=== PATIENT | male | born 1955 | race African-American/Black ===

== ENCOUNTER → 2016-06-07 | Day surgery (SDC) | payer MEDICAID ==
[~2016-06-07] VITALS: Ht 180.3 cm; Wt 125.2 kg
[2016-06-07] VITALS (8 sets, daily range): BP systolic 127–135; BP diastolic 70–88
[~2016-06-07] MED LIST: LISINOPRIL5 MG ORAL; NS Irrig 1000ml ONE; PROCARDIA10 MG ORAL; Propofol 10mg/ml 20ml IV ONE; VITAMIN C500 M1 ORAL
--- NOTE | 2016-06-07 11:11 | Short Stay Surgery H&P ---
History of Present Illness History of Present Illness Chief Complaint see recent H&P HPI Jacobo Kelly is a 60 year old male who was admitted on for Gastric And Colon Cancer Patient History Allergies: Coded Allergies: NO KNOWN ALLERGIES (Verified Allergy, Unknown, 06/07/16) PAST MEDICAL HISTORY: Past Surgeries: Social History: Medication History Scheduled Ascorbic Acid* (Vitamin C*), 1,000 MG ORAL DAILY, (Reported) Lisinopril (Lisinopril*), 10 MG ORAL DAILY, (Reported) Nifedipine* (Procardia*), 90 MG ORAL DAILY, (Reported) Physical Exam Vital Signs Last Vital Signs Date Time Temp Pulse Resp B/P Pulse Ox O2 Delivery O2 Flow Rate FiO2 06/07/16 10:22 98.1 102 16 128/70 97 Room Air Plan Attestation Are the patient's medical conditions optimized for surgery? HAL GRANADOS Jun 07, 2016 11:11
--- NOTE | 2016-06-07 11:11 | Pre-Procedure Note/Attestation ---
Pre-Procedure Note/Attestation Complete Prior to Procedure Planned Procedure: not applicable Procedure Narrative: egd/colonoscopy Indications for Procedure Pre-Operative Diagnosis: h/o gastric and colon cancer Attestation I attest that I discussed the nature of the procedure; its benefits; risks and complications; and alternatives (and the risks and benefits of such alternatives ), prior to the procedure, with the patient (or the patient's legal sales training representative). I attest that, if there was a reasonable possibility of needing a blood transfusion, the patient (or the patient's legal sales training representative) was given the [facility] standardized written summary, pursuant to the [place] Blood Safety Act ([place] Health and Safety Code # 1645, as amended). I attest that I re-evaluated the patient just prior to the surgery and that there has been no change in the patient's H&P, except as documented below: HAL GRANADOS Jun 07, 2016 11:11
--- NOTE | 2016-06-07 12:05 | Endoscopy Procedure Note ---
Endoscopy Procedure Note Indication for Procedure: h/o colon cancer and gastric cancer Procedures Performed: EGD, colonoscopy Operative Findings/Diagnosis: gastritis, diverticulosis Specimen: yes Pt Tolerated Procedure Well: Yes Estimated Blood Loss: none Anesthesiologist: remi Anesthesia: MAC Implant(s) used?: No 50 yrs or older w/o bx or poly: Yes 10yrs. F/U not recommended: Yes If not recommended, why?: Above average risk 10 yrs. F/U needed: Yes 18 years or older w/prev. colo: Yes <3yrs. since last colonoscopy: No HAL GRANADOS Jun 07, 2016 12:05
--- NOTE | 2016-06-07 12:15 | Anethesia Preoperative Eval ---
Anesthesia Pre-op PMH/ROS General Date of Evaluation: Jun 07, 2016 Time of Evaluation: 12:03 Anesthesiologist: remi ASA Score: ASA 3 Mallampati Score Class I : Soft palate, uvula, fauces, pillars visible Class II: Soft palate, uvula, fauces visible Class III: Soft palate, base of uvula visible Class IV: Only hard plate visible Mallampati Classification: Class II Surgeon: karlene Diagnosis: s/p gastric & colon Ca Surgical Procedure: egd/colonoscopy Anesthesia History: none Social History: current smoker Allergies: Coded Allergies: NO KNOWN ALLERGIES (Verified Allergy, Unknown, 06/07/16) Past Medical History Cardiovascular: Reports: HTN Pulmonary: Reports: COPD Gastrointestinal/Genitourinary: Reports: other - gastric & colon Ca Other: obesity Anesthesia Pre-op Phys. Exam Physician Exam Last Vital Signs Date Time Temp Pulse Resp B/P Pulse Ox O2 Delivery O2 Flow Rate FiO2 06/07/16 10:22 98.1 102 16 128/70 97 Room Air Airway Exam Mallampati Score: Class II Teeth: missing Anesthesia Pre-op A/P Risk Assessment & Plan Plan: propofol Status Change Before Surgery: Vince Lynch MD Jun 07, 2016 12:15
--- NOTE | 2016-06-07 12:15 | Immediate Post-Op Evaluation ---
Immediate Post-Op Evalulation Immediate Post-Op Evalulation Date of Evaluation: Jun 07, 2016 Time of Evaluation: 12:50 IV Fluids: 500 Blood Pressure Systolic: 125 Blood Pressure Diastolic: 80 Pulse Rate: 91 Respiratory Rate: 24 O2 Sat by Pulse Oximetry: 99 Temperature (Fahrenheit): 98.4 Pain Score (1-10): 0 Nausea: No Vomiting: No Complications none Patient Status: awake, patent, none Hydration Status: adequate Vince Patterson MD Jun 07, 2016 12:15
--- NOTE | 2016-06-07 12:16 | 48 Hour Post Anesthesia Eval ---
Post Anesthesia Evaluation Date of Evaluation: Jun 07, 2016 Time of Evaluation: 13:45 Blood Pressure Systolic: 129 0: 84 Pulse Rate: 87 Respiratory Rate: 18 Temperature (Fahrenheit): 97.2 O2 Sat by Pulse Oximetry: 95 Airway: patent Nausea: No Vomiting: No Pain Intensity: 0 Hydration Status: adequate Cardiopulmonary Status: stable Mental Status/LOC: patient returned to baseline Follow-up Care/Observations: n/a Post-Anesthesia Complications: tolerated well Follow-up care needed: ready to discharge Vince Patterson MD Jun 07, 2016 12:16
--- NOTE | 2016-06-07 19:27 | Procedure Note ---
DATE OF PROCEDURE: 06/07/2016 SURGEON: Emanuel Mijares M.D. PROCEDURE: Upper endoscopy and colonoscopy with biopsy. ANESTHESIA: Vince Patterson M.D. INSTRUMENT: Olympus adult flexible endoscope and colonoscope. INDICATION: History of colon cancer, chronic GERD, and questionable history of gastric cancer. REASON FOR PROCEDURE: The procedure, risks, benefits, and possible consequences, including hemorrhage, aspiration, perforation and infection, and alternative treatments, were explained to the patient/legal guardian by Dr. Emanuel Mijares and the patient/legal guardian understood and accepted these risks. DESCRIPTION OF PROCEDURE: After informed consent was obtained, the patient was adequately sedated, Olympus upper endoscope was advanced from mouth into the second portion of the duodenum and retroflexion was performed in the stomach. The patient has nodule right at the cardia of the stomach, which was biopsied. 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 Random biopsy from antrum was obtained to rule out H. pylori infection. The rest of the upper endoscopy examination was within normal limits. At this time, the upper endoscope was retrieved and the patient was turned over for colonoscopy. First, a rectal exam was performed, which was normal. Then, the scope was advanced into the anastomosis. The patient had evidence of right hemicolectomy. There is no obvious polyp seen in this colonoscopy examination. The patient has evidence of diverticulosis in the left colon. The quality of prep was good, but not excellent. Retroflexion of rectum showed evidence of internal hemorrhoids. SUMMARY OF FINDINGS: 1. Gastric cardiac nodules status post biopsy. 2. Gastritis, status post biopsy. 3. Diverticulosis. 4. Status post random biopsy of the anastomosis in the colon. 5. Internal hemorrhoids. RECOMMENDATIONS: Follow biopsies and treat accordingly. I want to thank Dr. Roque Rivera for this kind referral. Emanuel Mijares M.D. DR: Loida JOB#: [id number] CC: Roque Rivera M.D.; Fax#: [phone]
--- NOTE | 2016-06-10 19:12 | Cardiology Report ---
APPROVED REPORT EKG Measurement Heart [id number] SD 196P [id number] Normal sinus rhythm Normal ECG
[2016-06-21 09:54] VITALS: BP 129/84
== END | disposition home or self-care (01) ==
LOC: GAS 09:45
DX: Z85.038 Personal history of other malignant neoplasm of large intestine (principal); K63.3 Ulcer of intestine; K63.89 Other specified diseases of intestine; K57.30 Diverticulosis of large intestine without perforation or abscess without bleeding; K64.8 Other hemorrhoids; Z90.49 Acquired absence of other specified parts of digestive tract; K21.9 Gastro-esophageal reflux disease without esophagitis; K29.40 Chronic atrophic gastritis without bleeding; K31.7 Polyp of stomach and duodenum; K25.9 Gastric ulcer, unspecified as acute or chronic, without hemorrhage or perforation; I10 Essential (primary) hypertension; J44.9 Chronic obstructive pulmonary disease, unspecified; F17.200 Nicotine dependence, unspecified, uncomplicated
CPT/HCPCS: 43239; 45380; J2704; Z7512; 93005; 94003; 94150